=== PATIENT | male | born 1960 | race Caucasian/White ===

== ENCOUNTER → 2023-12-02 10:06 | Outpatient (REF) | payer MEDICARE, MEDICAID, SELFPAY | LOC: MRI 10:06 | PROVIDERS: ATTENDING PHYSICIAN Psychiatry & Neurology Neurology; FAMILY PHYSICIAN Family Medicine | DX: R41.3 Other amnesia (principal); F20.9 Schizophrenia, unspecified; G44.89 Other headache syndrome | CPT/HCPCS: 70551 ==

== ENCOUNTER → 2024-01-07 09:43 | Outpatient (REF) | payer MEDICARE, SELFPAY | LOC: RCS 09:43 | PROVIDERS: ATTENDING PHYSICIAN Family Medicine | DX: Z13.6 Encounter for screening for cardiovascular disorders (principal) | CPT/HCPCS: 93005 ==

== ENCOUNTER 2024-07-08 16:20 | Inpatient (IN) | payer MEDICARE, MEDICAID, SELFPAY ==
[2024-07-08] VITALS (11 sets, daily range): BP systolic 116–131; BP diastolic 62–78; BMI 27.8
--- NOTE | 2024-07-08 13:46 | ED.GENMED ---
History of Present Illness
<Saritha Bowen PA-C - Last Filed: 07/08/24 18:08>
General
Chief Complaint: Fever
Source: patient
Exam Limitations: none
Time Seen by Provider: 07/08/24 13:40
Nursing documentation reviewed up to this point in time: agreed with
History of Present Illness
History of Present Illness:
64-year-old male with a past medical history of schizophrenia presents emergency department from [facility] for cough and shortness of breath for the past day. Staff reports that during house that patient has not been acting right and notes a
change in mental status. Patient himself reports that he has persistent coughing, shortness of breath, and uncomfortable feeling in his chest. Patient states that he also has had transient episodes of diaphoresis. He denies abdominal pain,
diarrhea, constipation, burning with urination.
Review of Systems
<Saritha Bowen PA-C - Last Filed: 07/08/24 18:08>
Review of Systems
All Other Systems: ROS reviewed and negative except as documented in HPI and ROS
Phy Exam
<Saritha Bowen PA-C - Last Filed: 07/08/24 18:08>
Physical Exam
Physical Exam:
General: Patient is well appearing and in no acute distress; non-toxic
Skin: Warm and dry, no rashes or lesions
Head: Normocephalic, atraumatic
Eyes: Sclera non-icteric. EOMs intact. PERRLA.
Cardiac: Regular rate and rhythm, no murmurs
Peripheral Vascular: No lower extremity swelling or edema
Pulm: Tachypnea, conversational dyspnea, pulse ox 88% on RA, no wheezes, rales, or rhonchi
Abdomen: No abdominal tenderness to palpation
Neuro: CN II-XII intact, no focal neurologic deficits.
Psychiatric: Appropriate mood and affect.
Course
<Saritha Bowen PA-C - Last Filed: 07/08/24 18:08>
Orders/Labs/Results
Orders:
Orders
07/08/24 13:39
Electrocardiogram (*1) Urgent
Reason for Study: Shortness of Breath
CR Chest - 2 Views Urgent
Comment:
Reason For Exam: cough
07/08/24 13:40
EKG- Treatment ONCE
07/08/24 13:45
COVID-19 Antigen Urgent
Source: Nasal Swab
Complete Blood Count/With Diff Urgent
Comprehensive Metabolic Panel Urgent
Lactic Acid Urgent
Influenza A+B Rapid Molecular Urgent
JEMIMA Source: Nasal Swab
Specimen Description:
07/08/24 13:51
Acetaminophen [Tylenol] 650 mg .ROUTE .STK-MED ONE
07/08/24 13:53
Acetaminophen [Tylenol] 650 mg PO NOW STA
07/08/24 15:06
Dexamethasone Sod Phosphate [Decadron] 10 mg IV NOW STA
07/08/24 15:07
Oseltamivir Phosphate [Tamiflu] 75 mg PO NOW STA
07/08/24 15:34
Ipratropium/Albuterol Sulfate [Duoneb] 3 ml INH R NOW ONE
07/08/24 15:35
Admit/Transfer Patient As Directed
Co-Sign Provider:
Level of Care: Inpatient admission
Assign to:: Telemetry
Physician / Group: Manju
Diagnosis: Hypoxia, Influenza
Reason for Telemetry: Other
Other Reason for Telemetry: continuous pulse ox
Date to Stop Telemetry: 07/10/24
Time to Stop Telemetry: 11:00
Reason for Hospitalization: tamiflu, oxygen, nebs
Expected length of stay greater than two midnights?: Yes
ELOS- Estimated Length of Stay in days: 3
I certify the patient meets the requirements for IP care: Yes
07/08/24 15:36
PRN Pain Medication Management As Directed
May give lesser potent ordered pain med per pt: Yes
preference::
Protocol:: Medication orders for pain may be administered in a
manner that supports deferring to patient preference
when the pt is:
- Requesting an ordered lesser potent pain medication.
Least to most potent pain medications are defined
as: acetaminophen < NSAID < tramadol < opioids
(morphine, oxycodone, hydromorphone).
- Requesting a lesser dose of the same medication IF
ORDERED.
- Requesting a less intrusive route of administration
if both routes are prescribed by the provider (PO <
IV).
07/08/24 15:38
Code Status As Directed
Resuscitation Status: Full Code
07/10/24 11:00
DC Protocol for Telemetry ONCE
Abnormal Lab Results
07/08/24
13:45
RBC 4.20 L 10^6/uL
(4.70-6.10)
Hgb 12.3 L g/dL
(13.0-18.0)
Hct 36.4 L %
(39.0-52.0)
Absolute Lymphs (auto) 0.2 L 10^3/uL
(1.2-3.4)
Neutrophils % 90.2 H %
(42.2-75.2)
Lymphocytes % 3.7 L %
(20.5-51.1)
Sodium 129 L mmol/L
(135-145)
Glucose 154 H mg/dl
(70-99)
Total Protein 6.1 L g/dl
(6.3-8.2)
07/08/24 13:45
07/08/24 13:45
Vital Signs
Initial and Last Documented VS:
Initial Vital Signs
Pulse Resp BP Pulse Ox
89 29 124/69 93
07/08/24 13:40 07/08/24 13:40 07/08/24 13:40 07/08/24 13:40
Last Documented Vital Signs
Temp Pulse Resp BP Pulse Ox
98.4 F 88 20 122/78 95
07/08/24 18:00 07/08/24 18:00 07/08/24 18:00 07/08/24 18:00 07/08/24 18:00
<Juan Dowling, DO - Last Filed: 07/08/24 14:58>
Orders/Labs/Results
Orders:
Orders
07/08/24 13:39
Electrocardiogram (*1) Urgent
Reason for Study: Shortness of Breath
CR Chest - 2 Views Urgent
Comment:
Reason For Exam: cough
07/08/24 13:40
EKG- Treatment ONCE
07/08/24 13:45
COVID-19 Antigen Urgent
Source: Nasal Swab
Complete Blood Count/With Diff Urgent
Comprehensive Metabolic Panel Urgent
Lactic Acid Urgent
Influenza A+B Rapid Molecular Urgent
JEMIMA Source: Nasal Swab
Specimen Description:
07/08/24 13:51
Acetaminophen [Tylenol] 650 mg .ROUTE .STK-MED ONE
07/08/24 13:53
Acetaminophen [Tylenol] 650 mg PO NOW STA
07/08/24 15:06
Dexamethasone Sod Phosphate [Decadron] 10 mg IV NOW STA
07/08/24 15:07
Oseltamivir Phosphate [Tamiflu] 75 mg PO NOW STA
07/08/24 15:34
Ipratropium/Albuterol Sulfate [Duoneb] 3 ml INH R NOW ONE
07/08/24 15:35
Admit/Transfer Patient As Directed
Co-Sign Provider:
Level of Care: Inpatient admission
Assign to:: Telemetry
Physician / Group: Manju
Diagnosis: Hypoxia, Influenza
Reason for Telemetry: Other
Other Reason for Telemetry: continuous pulse ox
Date to Stop Telemetry: 07/10/24
Time to Stop Telemetry: 11:00
Reason for Hospitalization: tamiflu, oxygen, nebs
Expected length of stay greater than two midnights?: Yes
ELOS- Estimated Length of Stay in days: 3
I certify the patient meets the requirements for IP care: Yes
07/08/24 15:36
PRN Pain Medication Management As Directed
May give lesser potent ordered pain med per pt: Yes
preference::
Protocol:: Medication orders for pain may be administered in a
manner that supports deferring to patient preference
when the pt is:
- Requesting an ordered lesser potent pain medication.
Least to most potent pain medications are defined
as: acetaminophen < NSAID < tramadol < opioids
(morphine, oxycodone, hydromorphone).
- Requesting a lesser dose of the same medication IF
ORDERED.
- Requesting a less intrusive route of administration
if both routes are prescribed by the provider (PO <
IV).
07/08/24 15:38
Code Status As Directed
Resuscitation Status: Full Code
07/10/24 11:00
DC Protocol for Telemetry ONCE
Abnormal Lab Results
07/08/24
13:45
RBC 4.20 L 10^6/uL
(4.70-6.10)
Hgb 12.3 L g/dL
(13.0-18.0)
Hct 36.4 L %
(39.0-52.0)
Absolute Lymphs (auto) 0.2 L 10^3/uL
(1.2-3.4)
Neutrophils % 90.2 H %
(42.2-75.2)
Lymphocytes % 3.7 L %
(20.5-51.1)
Sodium 129 L mmol/L
(135-145)
Glucose 154 H mg/dl
(70-99)
Total Protein 6.1 L g/dl
(6.3-8.2)
07/08/24 13:45
07/08/24 13:45
Vital Signs
Initial and Last Documented VS:
Initial Vital Signs
Pulse Resp BP Pulse Ox
89 29 124/69 93
07/08/24 13:40 07/08/24 13:40 07/08/24 13:40 07/08/24 13:40
Last Documented Vital Signs
Temp Pulse Resp BP Pulse Ox
98.4 F 88 20 122/78 95
07/08/24 18:00 07/08/24 18:00 07/08/24 18:00 07/08/24 18:00 07/08/24 18:00
Juwanlt;Saritha Bowen PA-C - Last Filed: 07/08/24 18:08>
MDM/Problems Addressed
Differential Diagnosis Includes:
see below
MDM/Problems Addressed:
NUMBER AND COMPLEXITY OF PROBLEMS ADDRESSED AT THE ENCOUNTER
� Chronic conditions affecting care: N/A
� Acute Exacerbation and/or Progression of Chronic Illness: N/A
� Differential Diagnosis includes: COVID-19, influenza, pneumonia, acute bronchitis, pulmonary embolism
AMOUNT AND/OR COMPLEXITY OF DATA TO BE REVIEWED AND ANALYZED
� I performed an independent evaluation of and my interpretation is:
X-rays: No infiltrate
Laboratory Studies: CBC and CMP unremarkable
Other:
� Review of other/old records: Reviewed [facility], no previous ER physician documentation to review no discharge summary to review
� Clinical information was obtained by an independent historian: n/a
� Prescriptions/Medications Considered but not given: none
� Further testing considered but not performed: n/a
RISK OF COMPLICATIONS AND/OR MORBIDITY OR MORTALITY OF PATIENT MANAGEMENT
� Social determinants of health affecting care: mental illness
� Discussion with other providers: ER attending
� Escalation of care including admission/observation vs risk of discharge considered:
64-year-old male with a past medical history of schizophrenia presents emergency department today from [facility] with concerns of shortness of breath. On arrival he is 80% on room air, and he has tachypnea and covered dyspnea. Lungs are clear
to auscultation bilaterally. He is febrile. He was given Tylenol. He tested positive for flu. In light of hypoxia and new oxygen requirement, will admit to hospital.
<Saritha Bowen PA-C - Last Filed: 07/08/24 18:08>
*Critical Care Note
Total Time (30-74mins, 75-104mins- exclusive of procedures): Not Applicable
ED Attending Note
<Saritha Bowen PA-C - Last Filed: 07/08/24 18:08>
-
Portions of this chart may have been created with voice recognition software.� Occasional wrong word or��sound alike� substitutions may have occurred due to the inherent limitations of voice recognition software.
<Juan Dowling DO - Last Filed: 07/08/24 14:58>
ED Attending Note
Patient seen and examined by attending physician: Yes
I performed the substantive portion of visit, reviewed & personally made and approve the management plan that is documented in note by myself or MARCELINO.: Yes
ED Attending Note:
I evaluated the patient at bedside. The patient has significant coughing and room air sats go down to as low as 87 to 88%. Will also add steroids. Lymphocytopenia noted. He is flu positive.
Discharge Plan
Departure
Patient Disposition: Admit
Date of Disposition: 07/08/24
Time of Disposition: 15:18
Admit to: Med/Surg
Presentation/result/management discussed w/ accepting MD/DO: Hospitalist
Patient with high blood pressure during this ER visit?: Yes
Condition: Fair
Discharge Problem:
Influenza A, Acute respiratory distress
Interventions
Interventions:
*General Assessment Last Done: 07/08/24 13:41
ED- Fall Risk Assessment Last Done: 07/08/24 13:46
ED- Neurological Assessment Last Done: 07/08/24 13:46
[2024-07-08] MEDS: TYLENOL 650 MG PO ×2 (13:53→19:34)
[2024-07-08 14:07] LABS: % Basophils 0.2 % (0-2); % Immature Granulocytes 0.4 % (0-0.5); % Lymphocytes 3.7 % (20.5-51.1); % Monocytes 5.5 % (1.7-9.3); % Neutrophils 90.2 % (42.2-75.2); Absolute Lymphocytes 0.2 10^3/uL (1.2-3.4); Absolute Monocytes 0.3 10^3/uL (0.1-0.6); Absolute Neutrophils 4.4 10^3/uL (1.4-6.5); Hematocrit 36.4 % (39.0-52.0); Hemoglobin 12.3 g/dL (13.0-18.0); Mean Corp Hgb Conc. 33.8 g/dL (33.0-37.0); Mean Corpuscular Hgb 29.3 pg (27.0-31.0); Mean Corpuscular Volume 86.7 fL (80.0-94.0); Mean Platelet Volume 10.3 fL (7.4-10.4); Nucleated Red Blood Cells % 0 % (-); Platelet Count 138 10^3/uL (130-400); Red Cell Dist. Width 13.6 % (11.5-14.5); White Blood Cell Count 4.9 10^3/uL (4.8-10.8)
[2024-07-08 14:13] LABS: Lactic Acid 1.5 mmol/L (0.7-2.0)
[2024-07-08 14:15] LABS: ALT (SGPT) 20 U/L (0-50); AST (SGOT) 26 U/L (17-59); Albumin 3.9 g/dl (3.5-5.0); Alkaline Phosphatase 61 U/L (38-126); Blood Urea Nitrogen 17 mg/dl (9-20); COVID-19 Antigen Negative (Negative); Calcium 9.7 mg/dl (8.4-10.2); Carbon Dioxide 23 mmol/L (22-30); Chloride 100 mmol/L (98-107); Glucose 154 mg/dl (70-99); Sodium 129 mmol/L (135-145); Total Bilirubin 0.5 mg/dl (0.2-1.3); Total Protein 6.1 g/dl (6.3-8.2); eGFR > 60.00
--- NOTE | 2024-07-08 15:43 | HPS.HSE ---
Family Physician
-
Family Physician: Tam Bahena
Chief Complaint
-
Fever, Cough and Shortness of Breath
History of Present Illness
Patient is a 64 y/o male past medical history of schizophrenia and cognitive impairment who presents with cough, fever and shortness of breath. Patient is unable to provide much additional history. He reports symtpoms started getting worse today.
He reports frequent dry cough and feeling short of breath. [facility] noted him to be more confused today and he was sent to the emergency department for evaluation. Upon arrival to ED he was found to be febrile in
triage and subsequently tested positive for Influenza Type A.
Medical History
Past Medical History
Past Medical History: Reports Other
Additional Past Medical History:
Schizophrenia
Past Surgical History: Reports Other (Unknown)
Social History
Tobacco: Non-smoker
Living: Other ([facility])
Family History
Family History: Not pertinent
Allergies / Home Medications
Allergies reflects when Allergies were last updated in [employer].
Home Medications with original date entered in [employer]
Allergy/Medication List:
Allergies
Allergy/AdvReac Type Severity Reaction Status Date / Time
haloperidol [From Haldol] Allergy Unknown Verified 07/08/24 13:41
Home Medications
acetaminophen 325 mg tablet (Tylenol) 650 mg PO Q6HPRN PRN mild pain 07/08/24
aluminum-mag hydroxide-simethicone 200 mg-200 mg-20 mg/5 mL oral susp (Dory-Lanta) 15 ml PO DAILYPRN PRN gerd 07/08/24
carbamide peroxide 6.5 % ear drops (Ear Drops (carbamide peroxide)) 4 drp otic (ear) TH both ears 07/08/24
cyanocobalamin (vitamin B-12) 1,000 mcg tablet 1,000 mcg PO DAILY 07/08/24
fluticasone propionate 50 mcg/actuation nasal spray,suspension 2 spray intranasal DAILY 07/08/24
lorazepam 0.5 mg tablet 0.5 mg PO TIDPRN PRN anxiety 07/08/24
magnesium hydroxide 400 mg/5 mL oral suspension (Milk of Magnesia) 2,400 mg PO DAILYPRN PRN constipation 07/08/24
promethazine 6.25 mg/5 mL oral syrup 12.5 mg PO Q6HPRN PRN common cold 07/08/24
risperidone 4 mg tablet 4 mg PO BID 07/08/24
sodium chloride 0.65 % nasal spray aerosol (Deep Sea Nasal) 2 spray intranasal QID 07/08/24
Review of Systems
-
A 12 point ROS was completed and negative except as noted: Yes
Constitutional: Reports Fever and Chills
Respiratory: Reports Cough and Trouble Breathing
Cardiac: Denies Chest Pain or Palpitations
Physical Exam
Vital Signs
Vital Signs
Temp Pulse Resp BP Pulse Ox
101.5 F H 77 42 124/65 90
07/08/24 13:41 07/08/24 14:45 07/08/24 14:45 07/08/24 14:43 07/08/24 14:45
Physical Exam
General: Comfortable and Conversant
HEENT: Anicteric, Oxygen (Nasal Cannula) and Other (Facemask covering nose and mouth)
Respiratory: Wheezes (Mild inspiratory and expiratory wheeze) and Other (Tachypneic; Frequent Cough)
Cardiac: S1/S2, Regular Rhythm and Tachycardia
GI: Soft and Non Tender
Rectal: Deferred by Provider
Musculoskeletal: No Clubbing, No Cyanosis and No Edema
Skin: Warm and Dry
Neuro: Awake, Alert and Nonfocal/grossly intact
Psych: Calm
Laboratory Results
-
07/08/24 13:45
07/08/24 13:45
Laboratory Results
Lactic Acid 1.5 mmol/L (0.7-2.0) 07/08/24 13:45
Total Bilirubin 0.5 mg/dl (0.2-1.3) 07/08/24 13:45
AST 26 U/L (17-59) 07/08/24 13:45
ALT 20 U/L (0-50) 07/08/24 13:45
Alkaline Phosphatase 61 U/L (38-126) 07/08/24 13:45
Data Reviewed
-
Diagnostic Radiology: Report Reviewed by me
Lab Data: Labs Reviewed by me
Impression/Plan
-
Acute Bronchitis secondary to Influenza Type A
-Continue Tamiflu
-Continue DuoNeb QID and PRN
-Continue supportive care with Tylenol and cough suppressants
Hyponatremia, mild
-Give IVFs in setting of infection
-Recheck sodium in AM
Schizophrenia
-Continue risperidone and lorazepam as prior to admission
DVT proph: Lovenox
Code Status: Full Code
[2024-07-08] MEDS: DUONEB 3 ML INH ×2 (15:49→20:03)
[2024-07-08] MEDS: TAMIFLU 75 MG PO (15:50)
--- NOTE | 2024-07-08 16:00 | W.PN.UPDATE ---
Update Note
Progress Note Update
This is an addendum to the H&P written by Karlie Lara on 07/08/2024. Patient seen and examined independently with PA.
64-year-old male past medical history of schizophrenia, here for cough and fever starting today as per patient.
Patient febrile.
Chest x-ray shows no acute cardiopulmonary process
Acute bronchitis secondary to Influenza A positive. Wheezing on examination. Tamiflu started. DuoNebs. IV fluids. Tylenol.
[2024-07-08] MEDS: LOVENOX 40 MG SC (19:34)
[2024-07-08] MEDS: NSS 1000 IV (19:34)
[2024-07-08] MEDS: RISPERDAL 4 MG PO (19:34)
[2024-07-08] MEDS: ROBITUSSIN DM 10 ML PO (19:34)
[2024-07-08] MEDS: DUONEB INH (20:03)
[2024-07-09] VITALS (7 sets, daily range): BP systolic 98–125; BP diastolic 48–67
[2024-07-09] MEDS: TYLENOL 650 MG PO ×4 (01:28→21:54)
[2024-07-09] MEDS: ROBITUSSIN DM 10 ML PO (01:28)
[2024-07-09] MEDS: NSS 1000 IV (06:16)
[2024-07-09 07:44] LABS: Blood Urea Nitrogen 13 mg/dl (9-20); Calcium 9.1 mg/dl (8.4-10.2); Carbon Dioxide 25 mmol/L (22-30); Chloride 103 mmol/L (98-107); Estimated Creatinine Clearance 102 ml/min; Glucose 104 mg/dl (70-99); Potassium 4.2 mmol/L (3.5-5.1); Sodium 133 mmol/L (135-145); eGFR > 60.00
[2024-07-09] MEDS: DUONEB INH ×3 (07:48→15:25)
[2024-07-09] MEDS: RISPERDAL 4 MG PO ×2 (07:49→19:58)
[2024-07-09] MEDS: TAMIFLU 75 MG PO ×2 (07:49→20:05)
[2024-07-09] MEDS: TESSALON PERLES 200 MG PO ×2 (07:52→21:54)
[2024-07-09 07:57] LABS: Procalcitonin 0.15 ng/ml (0.0-0.25)
[2024-07-09 08:01] LABS: Hematocrit 35.8 % (39.0-52.0); Hemoglobin 11.8 g/dL (13.0-18.0); Mean Corpuscular Hgb 28.8 pg (27.0-31.0); Mean Corpuscular Volume 87.3 fL (80.0-94.0); Mean Platelet Volume 9.5 fL (7.4-10.4); Platelet Count 113 10^3/uL (130-400); Red Cell Dist. Width 13.7 % (11.5-14.5)
--- NOTE | 2024-07-09 08:34 | W.PN.HOSP.TC ---
Today's Communication/Plan
-
see PN
Assessment / Plan
Assessment / Plan
64yo M with PMHx of schyzophrenia sent from [facility] with cough and fever, found influenza A without pneumonia on chest XR. Hypoxic to 86% without O2. Declining nebulizations or physical exam
A/P:
#Acute respiratory insufficiency 2/2 Influenza A
Check procalcitonin, meanwhile DOxy/Cefdinir
Tamiflu
WEan off O2
Nebulizations
Tylenol
droplet precautions
#Schizophrenia
uncooperative with medical mgmt
Psychiatry consult
#Leukopenia
#Thrombocytopenia
reactive
4T score low, no concern for HIT
follow CBC
#hyponatremia on admission
2/2 acute disease, dehydration
improved on IVF
DVT ppx lovenox
Full code
I have spent at least 53min reviewing chart, test results, communication with consultants and [facility]direct patient care
Anticipated Discharge: Within 24 hours
Subjective/Interval History
-
Date of Service: July 09, 2024
Objective Data
-
Labs:
Laboratory Results
07/09/24
07:11
WBC 3.0 L
Hgb 11.8 L
Hct 35.8 L
Plt Count 113 L
Sodium 133 L
Potassium 4.2
Chloride 103
Carbon Dioxide 25
BUN 13
Creatinine 0.8
Glucose 104 H
Calcium 9.1
Vital Signs:
Vital Signs
Temp Pulse Resp BP Pulse Ox
102.9 F H 82 17 125/67 96
07/09/24 08:29 07/09/24 08:29 07/09/24 08:29 07/09/24 08:29 07/09/24 08:29
I&O
12/07/09/24 07/10/24
06:59 06:59 06:59
Intake Total 960 / 960
Balance 960 / 960
Review of Systems
-
Unable to obtain full review of systems at this time due to: Other (schyzophrenia)
History Source: Patient
All other systems: Reviewed and negative
[2024-07-09 10:43] LABS: NT-proBNP 1620 pg/ml
[2024-07-09] MEDS: OMNICEF 300 MG PO ×2 (10:52→19:58)
[2024-07-09] MEDS: VIBRAMYCIN 100 MG PO ×2 (10:52→19:58)
--- NOTE | 2024-07-09 11:38 | CON.MD ---
Addendum entered and electronically signed by Guille Ryder MD 07/09/24 14:40:
#Volume overload
most likely 2/2 IVF
Lasix and wean off O2
Echo
Original Note:
Consultation - Medical
-
patient seen chart reviewed. the patient is not a good historian. he did answer a few questions for me but at one point he told me he was tired of anwering questions and also seemed confused. he told me for example he [facility] not [facility]
but rather he lived a few hours away. he was oriented to person and place but not to year or date. he acknowledged that he was taking psychotropic medications and sees a psychiatrist and said his medications do help him. i called [facility]
where he lives and spoke with a nurse robbie who has known him for several years. he arrived there in december of 2020. he is dx autism and schizophrenia. his meds are as ordered in the chart. he is generally a man of few words says she and he does
NOT like to be touched. he does allow her to do bp etc. she notes he has had some difficulty w swallowing and an eval as well as ENT eval is scheduled for july. she noted he was not doing well vis a vis respiratory and she worried he had
aspirated hence he was sent to . the patient takes risperdal 4 mg bid ativan prn and vit b12. he has not been hospitalized in since they have known him. he sees dr villareal for his psych meds. she could not tell me any hx prior to coming to [facility]
past psych hx see above
medical patient dx with influenza A. po 80 on room air on admit and patient was febrile 102.8 he is sl anemic qtc is nl as is ecg allergic to haldol cxr without acute findings. NA is low 129 gluconse 154 (not fasting) bp according to [facility]
has been high on occasion not this admit. difficulty w swallowing see above patient reportedly allergic to haldol.
substance abuse not
fh non contributory
social lives at [facility]. sister keeps in touch. patient told me his family wants nothing to do w him
mse alert oriented to person and place. seems a little confused and was irritable so i did not press him. speech hard to understand at times and sparse. no overt psychosis expressed mood is irritated affect a little labile denies si insight
judgment lacking memory seems a bit off possibly this is baseline and /or affected by infection
dx schizophrenia by hx autism by hx possibly a degree of encephalopathy due to medical illness or it is possibly his baseline
plan would continue w meds as they are. risperdal at 8 mg could be contributing to issues w swallowing. continue w ativan prn agitation. lizz did not want med change unless dr villareal sees him. for now would continue as currently talked w
nursing and he was able to eat without any issues. psych will look in on him tomorrow.
[2024-07-09] MEDS: LASIX 40 MG IV ×2 (13:27→15:51)
--- NOTE | 2024-07-09 14:06 | CM ---
Reviewed the chart notes and spoke withe the patient at the bedside. The patient reports living in a [facility] ([facility]) which is a one story home with one step to enter. The patient reports no DME/VN/SNF in the past. The patient currently
is on supplemental O2. CM left voice message for nurse at [facility] to confirm demographic information and to confirm patient can return to [facility]. CM continues to be available to patient/family and is monitoring medical plan for needs at
discharge.
Plan: Discharge back to [facility] when medically stable.
--- NOTE | 2024-07-09 14:25 | PN.CDI ---
Addendum entered and electronically signed by Guille Ryder MD 07/09/24 14:52:
documentation final, no addition to be made
Original Note:
CDI
- -
CDI:
Physician Documentation Request
Admit Date: 07/08/24 16:20
Dear Doctor Aleksey,
Clinical Indicators:
Patient admitted with Influenza A.
07/09 PN: #Leukopenia #Thrombocytopenia
WBC, RBC, Plts:
07/09/24
07:11
WBC 3.0 L
RBC 4.10 L
Plt Count 113 L
Based on the above, could you clarify in the progress notes, the appropriate diagnosis, if significant, that supports the above abnormalities and additional evaluation, monitoring and/or treatment rendered:
Pancytopenia
Leukopenia/thrombocytopenia only
Other
Use of terms such as suspected, likely, concern for, or probable (associated with a specific diagnosis that is being evaluated, monitored, or treated as if it exists) are acceptable and can be coded in the inpatient setting, when documented at the
time of discharge.
Thank you,
Tamy Abarca RN BSN
CDI Specialist
available via tiger text
Please use your independent medical judgment in providing your response.
--- NOTE | 2024-07-09 14:33 | PN.CDI ---
Addendum entered and electronically signed by Guille Ryder MD 07/09/24 14:51:
no sepsis
Original Note:
CDI
- -
CDI:
Physician Documentation Request
Admit Date: 07/08/24 16:20
Dear Doctor Aleksey,
Clinical Indicators:
Patient admitted with Influenza A.
Temp on admission:
07/08/24
13:41
Temp 101.5 F H
RR trend on admission:
07/08/24
13:40 07/08/24
13:45 07/08/24
14:00
Resp Rate 29 30 31
07/08/24
15:00 07/08/24
15:30 07/08/24
16:00
Resp Rate 32 30 27
Please clarify which of the following most accurately describes the status of the patient's infection:
Sepsis, POA
- Systemic manifestations of infection, with 2 or more SIRS criteria which include:
- Fever >100.4 degrees F or hypothermia < 96.8 degrees F
- Leukocytosis - WBC > 12,000 or leukopenia - WBC < 4,000 or > 10% bands
- Tachycardia > 90 beats per minute
- Tachypnea - RR > 20 breaths per minute or PaCO2 , 32mmHg
Source: Merck Manual 2013
Influenza A Only, Without Systemic Illness
Other
Use of terms such as suspected, likely, concern for, or probable (associated with a specific diagnosis that is being evaluated, monitored, or treated as if it exists) are acceptable and can be coded in the inpatient setting, when documented at the
time of discharge.
Thank you,
Tamy Abarca RN BSN
CDI Specialist
available via tiger text
Please use your independent medical judgment in providing your response.
[2024-07-09] MEDS: LOVENOX 40 MG SC (17:11)
[2024-07-09] MEDS: DUONEB 3 ML INH (20:06)
[2024-07-10 03:49] VITALS: BP 109/65
[2024-07-10 08:00] VITALS: BP 103/73
[2024-07-10] MEDS: DUONEB 3 ML INH ×3 (08:00→15:21)
[2024-07-10] MEDS: RISPERDAL 4 MG PO (08:31)
[2024-07-10] MEDS: LASIX 40 MG IV (08:31)
[2024-07-10] MEDS: TAMIFLU 75 MG PO (08:31)
[2024-07-10] MEDS: OMNICEF 300 MG PO (08:31)
[2024-07-10] MEDS: VIBRAMYCIN 100 MG PO (08:31)
[2024-07-10 09:16] LABS: % Basophils 0.5 % (0-2); % Immature Granulocytes 0.7 % (0-0.5); % Monocytes 5.5 % (1.7-9.3); % Neutrophils 85.3 % (42.2-75.2); Absolute Lymphocytes 0.4 10^3/uL (1.2-3.4); Absolute Monocytes 0.3 10^3/uL (0.1-0.6); Absolute Neutrophils 4.7 10^3/uL (1.4-6.5); Hematocrit 36.8 % (39.0-52.0); Hemoglobin 12.6 g/dL (13.0-18.0); Mean Corp Hgb Conc. 34.2 g/dL (33.0-37.0); Mean Corpuscular Hgb 29.2 pg (27.0-31.0); Mean Corpuscular Volume 85.4 fL (80.0-94.0); Nucleated Red Blood Cells % 0 % (-); Platelet Count 102 10^3/uL (130-400); Red Blood Cell Count 4.31 10^6/uL (4.70-6.10); Red Cell Dist. Width 13.5 % (11.5-14.5); White Blood Cell Count 5.5 10^3/uL (4.8-10.8)
[2024-07-10 09:19] LABS: ALT (SGPT) 33 U/L (0-50); AST (SGOT) 93 U/L (17-59); Albumin 3.4 g/dl (3.5-5.0); Alkaline Phosphatase 63 U/L (38-126); Blood Urea Nitrogen 20 mg/dl (9-20); Calcium 9.2 mg/dl (8.4-10.2); Carbon Dioxide 24 mmol/L (22-30); Chloride 99 mmol/L (98-107); Estimated Creatinine Clearance 117 ml/min; Glucose 96 mg/dl (70-99); Potassium 3.7 mmol/L (3.5-5.1); Sodium 132 mmol/L (135-145); Total Bilirubin 0.4 mg/dl (0.2-1.3); Total Protein 5.8 g/dl (6.3-8.2); eGFR > 60.00
--- NOTE | 2024-07-10 10:27 | CM ---
Addendum entered by William Hood 07/10/24 12:34:
Discharge order noted. Per MD pt does not need home Oxygen. Both pt and his sister and [facility] BETTY Pelayo are aware, expressed their agreement with discharge. BERT Pelayo confirmed that pt is accepted for admissions today.
[facility] to arrange ambulance transport BLS. PMNC completed, left with [facility].
[facility] nursing report: [phone] ext. [phone], ask for Gita.
Discharge instructions fax: [phone]
D/C plan: return back to [facility] with 11/02 staff support.
Addendum entered by William Hood 07/10/24 11:05:
Pt's clinical faxed to [facility] at [phone]
Original Note:
CM following re: discharge planning.
Reviewed pt's chart, met with pt, spoke to pt's sister Katlyn and left a message to [facility] nursing station [phone] and assistant loan processor Janessa at ext [phone].
CM spoke to pt's sister Katlyn, updated her on pt's clinical improvement and sister stated that pt lives at [facility] and pt will return back to [facility]. IMM reviewed, placed on chart, pt has a copy.
CM spoke to [facility] BERT Pelayo ext. [phone] and she confirmed that pt will be accepted with Influenza and home Oxygen if needed. Per Gita, home oxygen: portable O2 tank and O2 concentrator must be delivered prior to pt's arrival. Per Gita,
[facility] does not accept pt on weekends. Also, Gita stated they do not have an ability to provide transportation and an ambulance transport needs to be arranged to transport pt back to [facility] at discharge.
D/C plan: return back to [facility] when medically stable.
CM will follow with discharge plan updates as hospitalization progresses
[2024-07-10 11:00] VITALS: BP 118/64
--- NOTE | 2024-07-10 11:15 | W.PN.HOSP.TC ---
Today's Communication/Plan
-
Echo
Wean off O2
Possible d/c if echo unremarcable
Assessment / Plan
Assessment / Plan
64yo M with PMHx of schyzophrenia sent from [facility] with cough and fever, found influenza A without pneumonia on chest XR. Hypoxic to 86% without O2. Declining nebulizations or physical exam
A/P:
#Acute respiratory insufficiency 2/2 Influenza A
procalcitonin 0.15 ,
DOxy reasonable
Tamiflu
WEan off O2
Nebulizations
Tylenol
droplet precautions
#Volume overload
no clear Hx of CHF
Lasix
Echo
#Schizophrenia
uncooperative with medical mgmt
Psychiatry consult
#Leukopenia
#Thrombocytopenia
reactive
4T score low, no concern for HIT
follow CBC
#hyponatremia on admission
2/2 acute disease, dehydration
improved on IVF
DVT ppx lovenox
Full code
I have spent at least 36min reviewing chart, test results, communication with consultants and ndirect patient care
Anticipated Discharge: Within 24 hours
Subjective/Interval History
-
Date of Service: July 10, 2024
Objective Data
-
Labs:
Laboratory Results
07/10/24
08:08
WBC 5.5
Hgb 12.6 L
Hct 36.8 L
Plt Count 102 L
Sodium 132 L
Potassium 3.7
Chloride 99
Carbon Dioxide 24
BUN 20
Creatinine 0.7
Glucose 96
Calcium 9.2
Total Bilirubin 0.4
AST 93 H
ALT 33
Alkaline Phosphatase 63
Vital Signs:
Vital Signs
Temp Pulse Resp BP Pulse Ox
99.0 F 67 16 103/73 95
07/10/24 08:00 07/10/24 08:31 07/10/24 08:03 07/10/24 08:31 07/10/24 10:21
I&O
07/09/24 07/10/24 07/11/24
06:59 06:59 06:59
Intake Total 960 / 960 1120 / 1120
Balance 960 / 960 1120 / 1120
Review of Systems
-
History Source: Patient
All other systems: Reviewed and negative
Physical Exam
-
General: No Apparent Distress
HEENT: Normocephalic
Respiratory: Clear to Auscultation
Cardiac: Regular Rhythm
GI: Soft, Nontender and Nondistended
Neuro: Awake, Alert and Oriented
Psych: Calm; Negative Intact Judgement/Insight
--- NOTE | 2024-07-10 12:11 | W.DCSUMMARY ---
Discharge Summary
Discharge Data
Date of Admission: 07/08/24
Date of Discharge: 07/10/24
-
Pending Results: No
Hospital Course
64yo M with PMHx of schizophrenia sent from [facility] with cough and fever, found influenza A without pneumonia on chest XR. Hypoxic to 86% without O2, after Lasix improved to >90% on RA. Echo Normal left ventricular size and systolic function.
No regional wall motion abnormalities are seen. LV ejection fraction is 55-60% by Erickson's method of discs. Dilated aortic root 4.1cm -to be followed with PCP for periodic monoitoring. Medically stable for d/c. Repeat CBC and BMP in 1 week upon d/c
I have spent at least 36min reviewing chart, test results, communication with consultants and ndirect patient care
Patient was managed for:
#Acute respiratory insufficiency 2/2 Influenza A
#Volume overload
#Schizophrenia
#Leukopenia
#Thrombocytopenia
#hyponatremia on admission
Discharge Plan
-
Patient Disposition: Assisted Living
Discharge Diagnosis/Procedures: Influenza
Diet: Regular
Activity: As tolerated
Blood Work: CBC, BMP in 1 week upon d/c
Referrals:
Tam Bahena DO [Family Provider] - in two to three weeks (Dilated aortic root 4.1cm -to be followed with PCP for periodic monitoring)
Prescriptions:
New
doxycycline hyclate 100 mg Capsule
100 mg PO Q12 Qty: 12 0RF
oseltamivir 75 mg Capsule
75 mg PO BID Qty: 7 0RF
Continued
risperidone 4 mg Tablet
4 mg PO BID
acetaminophen [Tylenol] 325 mg Tablet
650 mg PO Q6HPRN PRN (Reason: mild pain)
promethazine 6.25 mg/5 mL Syrup
12.5 mg PO Q6HPRN PRN (Reason: common cold)
cyanocobalamin (vitamin B-12) 1,000 mcg Tablet
1,000 mcg PO DAILY
lorazepam 0.5 mg Tablet
0.5 mg PO TIDPRN PRN (Reason: anxiety)
magnesium hydroxide [Milk of Magnesia] 400 mg/5 mL Suspension
2,400 mg PO DAILYPRN PRN (Reason: constipation)
Ear Drops (carbamide peroxide) 6.5 % Drops
4 drp OTIC (EAR) TH
alum-mag hydroxide-simeth [Dory-Lanta] 200-200-20 mg/5 mL Suspension
15 ml PO DAILYPRN PRN (Reason: gerd)
fluticasone propionate 50 mcg/actuation [place],Suspension
2 spray INTRANASAL DAILY
Deep Sea Nasal 0.65 % Aerosol,[place]
2 spray INTRANASAL QID
Discharge Orders:
Discharge Patient (As Directed); Ordered 07/10/24
Ordered By: Guille Ryder
Discharge Date and Time
Print Language: CUBAN
--- NOTE | 2024-07-10 14:19 | W.PN.UPDATE ---
Update Note
Progress Note Update
Pt seen at bedside, chart reviewed. Attempted to interview but he refused - said 'doctor doctor, please...no'. Has been psychiatrically stable thus far on current regimen which his current housing has asked to not adjust without his outside
psychiatrist involved.
No changes indicated at this time, psychiatrically stable for his baseline as per collateral
[2024-07-10 14:54] VITALS: BP 116/63
== END 2024-07-10 15:47 | disposition home or self-care (01) | DRG 194 ==
LOC: 2 NORTH 16:20
PROVIDERS: Physician Assistant Medical; ADMITTING PHYSICIAN Hospitalist; ATTENDING PHYSICIAN Internal Medicine; CONSULT PHYSICIAN Psychiatry & Neurology Psychiatry; EMERGENCY PHYSICIAN Emergency Medicine; FAMILY PHYSICIAN Family Medicine
DX: J10.1 Influenza due to other identified influenza virus with other respiratory manifestations (principal); E87.1 Hypo-osmolality and hyponatremia; F84.0 Autistic disorder; F20.9 Schizophrenia, unspecified; E87.70 Fluid overload, unspecified; D69.6 Thrombocytopenia, unspecified; E86.0 Dehydration
CPT/HCPCS: 71046; 80048; 80053; 83605; 83880; 84145; 85025; 85027; 87070; 87502; 87811; 93005; 93306; 94640; 96374; 99285

== ENCOUNTER → 2024-09-22 09:39 | Outpatient (REF) | payer MEDICARE, SELFPAY | LOC: RST 09:39 | PROVIDERS: ATTENDING PHYSICIAN Family Medicine | DX: R13.19 Other dysphagia (principal) | CPT/HCPCS: 74230; 92611 ==